=== PATIENT | male | born 1955 | race Caucasian/White ===

== ENCOUNTER 2024-10-14 09:03 | Day surgery (SDC) | payer MEDICARE, BC, SELFPAY ==
[2024-10-12 16:28] VITALS: BMI 35.4
[2024-10-14 09:38] VITALS: BP 112/65; PULSE 68; RESP 18; TEMP 36.1; O2SAT 95
[2024-10-14] MEDS: LACTATED RINGERS 1000ML 1,000 ML 50 ML IV (09:50)
--- NOTE | 2024-10-14 10:02 | P.HP_ITS ---
History of Present Illness *Admission Date: 10/14/24 *Reason for visit:: Screening for colon cancer *History of present illness: Mr. Decker is a 69-year-old gentleman who is here for screening colonoscopy. Last colonoscopy was 10 years ago. The examination is deemed medically necessary for screening colonoscopy. The patient has been seen, interviewed and examined prior to the procedure by both myself and the anesthesia provider. [facility] Disclaimer: The information contained in this section may have been updated after the patient was seen, as this information can be updated by other users. Medical History (Updated 10/14/24 @ 10:11 by Tevin Hunter II, MD) Sleep apnea History of COVID-19 Afib Hyperlipidemia Hypertension Pneumothorax Surgical History (Updated 10/14/24 @ 09:47 by Roma Levi RN) H/O vasectomy H/O chest tube placement Hx of hernia repair Hx of colonoscopy Family History Other No significant family history Social History (Updated 10/14/24 @ 09:47 by Roma Levi RN) Smoking Status: Current every day smoker alcohol intake: current current occupational status: retired Travel in the last 8 weeks: None caffeine: Yes Have you lived/traveled outside [place] in past 30 days?: No Contact w/someone who lives/traveled outside US past 30 days?: No Exposure to someone with infectious disease in past 14 days?: No Do you have a fever (greater than 100.4 F or 38 C)?: No Have you tested positive for COVID-19: Yes Exposed to someone with COVID-19 in past 14 days?: No Do you have a sore throat?: No Do you have a cough?: No Do you have any weakness?: No Are you experiencing any nausea/vomitting?: No Do you have any diarrhea?: No Are you experiencing any unusual bleeding?: No Do you have any muscle aches/pain?: No Do you have any abdominal pain?: No Are you experiencing loss of taste or smell?: No Review of Systems Review of Systems Review of systems (narrative): Negative *Cardiovascular Comments: Negative *Gastrointestinal Comments: Negative *Genitourinary Comments: Negative *Musculoskeletal Comments: Negative *Neurologic Comments: Negative Meds Home Medications and Allergies Home Medications ?Medication ?Instructions ?Recorded ?Confirmed ?Type [id number] 140 gram-sod sulfate 9 500 ml PO .COMPLEX colonscopy #3 ea 10/01/24 0 10/12/24 Rx gram-NaCl 5.2gram-KCl-C oral pwdr packs (Plenvu) apixaban 5 mg tablet (Eliquis) 5 mg PO BID 10/14/24 10/14/24 History atorvastatin 80 mg tablet 80 mg PO DAILY 10/14/24 10/14/24 History doxazosin 8 mg tablet 8 mg PO DAILY 10/14/24 10/14/24 History losartan 100 mg tablet 100 mg PO DAILY 10/14/24 10/14/24 History multivitamin 1 tab PO DAILY 10/14/24 10/14/24 History New Prescriptions to Start Prescriptions: Allergies Allergy/AdvReac Type Severity Reaction Status Date / Time No Known Allergies Allergy Verified 10/14/24 09:34 Exam Data for Last 24 hours Vital signs and Labs for Last 24 Hours: Temp Pulse Resp BP Pulse Ox O2 Del Method 97.0 F L 68 18 112/65 95 Room Air 10/14/24 09:38 10/14/24 09:38 10/14/24 09:38 10/14/24 09:38 10/14/24 09:38 10/14/24 09:38 I & O for Last 24 hours: Intake & Output 10/11/24 10/12/24 10/13/24 10/14/24 23:59 23:59 23:59 23:59 Weight 307 lb *Routine HEENT Exam Head: Present normocephalic Eye: Present EOMI and PERRL ENT: Present mucous membranes moist *Routine Neck Exam Neck: Present supple *Routine Respiratory Exam Respiratory: Present CTA bilaterally *Routine Cardiovascular Exam Cardiovascular: Present RRR *Routine Abdominal Exam Abdominal: Present soft and normoactive bowel sounds; Absent tenderness *Routine Rectal Exam Rectal:: deferred *Routine Genitalia Exam Genitalia:: deferred *Routine Extremities Exam Extremities: Absent cyanosis, clubbing or edema *Routine Skin Exam Skin: Present warm; Absent rash *Routine Neurological Exam Neurological: Present alert and oriented X3 Assessment and Plan *Assessment and plan (1) Screening for colon cancer: Status: Acute Category: Medical Code(s): Z12.11 - Encounter for screening for malignant neoplasm of colon Plan A/P: 1. Screening for colon cancer and last colonoscopy 10 years ago is the preprocedural diagnosis. The patient will be anesthetized/sedated using MAC sedation. The patient has been seen and examined. Cardiac and lung assessment prior to the examination is stable. Proceed with planned screening colonoscopy
[2024-10-14 10:09] VITALS: O2SAT 97
--- NOTE | 2024-10-14 10:11 | P.PCN_ITS ---
[facility] Procedure Note Date: 10/14/24 Time: 10:31 Procedure Note:: Colonoscopy Procedure Report: Colonoscopy with cold snare polypectomy Endoscopist: Tevin Hunter II, MD Referring physician: Cameron Singleton MD, [address] [place], [place] [address]ella Varela, [place] [address] Date of Procedure: October 14, 2024 Equipment: Olympus 190 variable stiffness pediatric colonoscope Sedation: MAC sedation Indication: Mr. Decker is a 69-year-old gentleman who is here for follow-up screening colonoscopy. His last colonoscopy was 10 years ago. He reports no abdominal pain, weight loss, change in his bowel habits or rectal bleeding. He reports no family history of colon cancer. Procedure: Prior to the procedure, a history and physical exam was performed, and patient's medications and allergies were reviewed. The risks, benefits and alternatives of the sedation and procedure were discussed with the patient. All questions were answered and informed consent was obtained. The patient was brought to the procedure room. Patient identification and proposed procedure were verified by the physician and the nurse. The patient was placed in a left lateral decubitus position and the scope was passed under direct vision. Throughout the procedure, the patient's blood pressure, pulse, and oxygen saturations were monitored continuously. The colonoscopy was accomplished without difficulty. The patient tolerated the procedure well. Findings: On digital rectal examination there was normal rectal tone. There were no external hemorrhoids. The prostate was 2+, mildly firm but symmetric without nodules. The colonoscope was introduced through the anal canal to the rectum and advanced to the cecum. The ileocecal valve and appendiceal orifice were identified. The scope was advanced a short distance into the ileum which appeared grossly normal. The scope was then withdrawn into the colon. There were 4 polyps (descending x 1 (3 mm), sigmoid x 1 (5 mm) and rectosigmoid x 2 (3 and 4 mm)). These were all removed via cold snare polypectomy. The remaining cecum, ascending and transverse colon and mucosa were grossly normal. There were scattered diverticuli throughout the descending and sigmoid colon (LEFT colon). Within the rectum there were prominent rectal varices. Upon retroflexion within the rectum there were grade 2 internal hemorrhoids. The preparation was excellent throughout with [place] Preparation Score of 9. The cecal time was 14 minutes. Impression: 1. Diminutive colonic polyps x 4 2. Left-sided diverticulosis 3. Rectal varices 4. Grade 2 internal hemorrhoids Plan: I will follow-up the polyp pathology and recommend repeat surveillance colonoscopy again in 5 to 7 years based upon the pathology. I would encourage psyllium bulking fiber supplementation on a maintenance basis. The patient did have prominent rectal varices which are portosystemic collaterals from possible portal hypertension. I would recommend liver/right upper quadrant abdominal ultrasound and hepatic fibrotic markers.
--- NOTE | 2024-10-14 10:17 | P.PNANES_ITS ---
[facility] Disclaimer: The information contained in this section may have been updated after the patient was seen, as this information can be updated by other users. Medical History (Updated 10/14/24 @ 10:11 by Tevin Hunter II, MD) Sleep apnea History of COVID-19 Afib Hyperlipidemia Hypertension Pneumothorax Surgical History (Updated 10/14/24 @ 09:47 by Roma Levi, LIZA) H/O vasectomy H/O chest tube placement Hx of hernia repair Hx of colonoscopy Family History Other No significant family history Social History (Updated 10/14/24 @ 09:47 by Roma Levi, LIZA) Smoking Status: Current every day smoker alcohol intake: current substance use type: denies use current occupational status: retired Travel in the last 8 weeks: None caffeine: Yes [facility] Anesthesia Checklist Patient Identification Patient Identification: Verbal (Name & ) Structural Data Admitted From: Home Planned Operative Procedure/s: colonoscopy Consent for Planned Operative Procedure(s) Verified: Yes NPO Status Verified Time NPO: 00:00 Airway Assessment Mallampati Score:: Class II C-Spine Mobility Assessed: Yes TMJ Mobility Assessed: Yes Neurological Assessment Level of Consciousness: Awake, Alert and Appropriate Anesthesia Plan Anesthesia Risk discussed: Yes Anesthesia Plan: Verified ASA Class: II Anesthesia Type: MAC
[2024-10-14 10:33] VITALS: BP 124/82; PULSE 73; RESP 18; TEMP 36.4; O2SAT 94
--- NOTE | 2024-10-14 10:40 | US_ITS ---
FINAL REPORT CLINICAL HISTORY: Rule out portal hypertension/cirrhosis FINDINGS: RIGHT UPPER QUADRANT ULTRASOUND Technique: Ultrasound images of the right upper quadrant were obtained. There is a coarsened echotexture to the liver, may be due to fatty infiltration. The portal vein demonstrates normal directional flow. The gallbladder is well visualized and the wall appears normal. There are no gallstones. Common duct is normal. The right kidney is unremarkable. IMPRESSION: Fatty liver. Reviewed, Interpreted and Dictated by Car Recinos MD Transcribed by Beena Walker Authenticated and . [facility]
[2024-10-14 10:43] VITALS: BP 111/71; PULSE 81; RESP 18; O2SAT 94
[2024-10-14 10:53] VITALS: BP 129/67; PULSE 71; RESP 18; O2SAT 95
--- NOTE | 2024-10-14 10:59 | SUR.PHASEII ---
Pt to Ultrasound at this time
[2024-10-14 11:03] VITALS: BP 132/76; PULSE 74; RESP 20; O2SAT 95
--- NOTE | 2024-10-14 11:18 | SUR.PHASEII ---
[place] back from [place] at this time
[2024-10-14 11:37] LABS: Albumin Level 4.8 g/dl (3.5-5.0); Chloride 107 mmol/L (98-107); Potassium 4.7 mmoL/L (3.5-5.1); Sodium 141 mmol/L (136-145)
[2024-10-14 11:40] LABS: Alanine Aminotransferase 46 U/L (12-78); Albumin/Globulin Ratio 2.8 (1.1-1.8); Alkaline Phosphatase 71 U/L (38-126); Anion Gap 12.7 mEq/L (5-15); Aspartate Amino Transferase 48 U/L (17-59); Bilirubin,Total 0.8 mg/dl (0.2-1.3); Blood Urea Nitrogen 14 mg/dl (9-20); Calcium 9.5 mg/dl (8.4-10.2); Carbon Dioxide 26 mmol/L (22.0-30.0); Creatinine Clearance Estimated 137 mL/min (50-200); Estimated Glomerular Filt Rate 74 ml/min (>60); GFR (African American) 90 ML/MIN (>60); Globulin 1.7 g/dL (1.3-3.2); Glucose 94 mg/dl (74-100); Total Protein,Serum 6.5 g/dl (6.3-8.2)
[2024-10-17 04:08] LABS: ALT (SGPT) P5P 45 IU/L (0-55); AST (SGOT) P5P 37 IU/L (0-40); Alpha 2-Macroglobulins, Qn 133 mg/dL (110-276); Apolipoprotein A-1 126 mg/dL (101-178); Bilirubin, Total 0.5 mg/dL (0.0-1.2); Cholesterol, Total 128 mg/dL (100-199); Fibrosis Score 0.18 (0.00-0.21); GGT 20 IU/L (0-65); Glucose 101 mg/dL (70-99); Haptoglobin 146 mg/dL (32-363); NASH Score 0.73 (0.00-0.25); Steatosis Score 0.58 (0.00-0.40); Triglycerides 125 mg/dL (0-149)
== END 2024-10-14 12:00 | disposition home or self-care (01) ==
PROVIDERS: PCP Family Medicine; Visit Provider Internal Medicine Gastroenterology
PROC: 0DJD8ZZ Inspection of Lower Intestinal Tract, Via Natural or Artificial Opening Endoscopic (ICD-10-PCS; CPT 45378; principal; 2024-10-14 10:30)
DX: K63.5 Polyp of colon (principal); K57.30 Diverticulosis of large intestine without perforation or abscess without bleeding; I86.8 Varicose veins of other specified sites; K64.1 Second degree hemorrhoids; Z12.11 Encounter for screening for malignant neoplasm of colon
CPT/HCPCS: 45385; 36415; 76705; 80053; J7120